=== PATIENT | female | born 1935 | race Caucasian/White ===

== ENCOUNTER 2016-11-30 14:10 | Inpatient (IN) | payer OTHER, MEDICAID ==
[~2016-11-30] VITALS: Ht 160 cm; Wt 81.6 kg
[~2016-11-30 14:10] MED LIST: ARICEPT10 MG PO; CELEXA40 MG PO; DITROPAN5 M1 PO; FERROUS SULFAT325 M3 PO; KLOR-CON 1010 MEQ PO; ORETIC25 MG PO; PROZAC40 MG PO; TRAMADOL50 MG PO; VITAMIN B12500 MC1 PO; XANAX1 M1 PO; ZOCOR40 MG PO
[2016-11-30 14:48] VITALS: BP 141/68
[2016-11-30] MEDS ORDERED: OMEPRAZOLE20 M3 PO (14:57)
[2016-11-30] MEDS ORDERED: NAMENDA10 MG PO (14:57)
[2016-11-30] MEDS ORDERED: SOMA350 MG PO (14:57)
[2016-11-30] MEDS ORDERED: SLOW-MAG 106 MG1 ECT PO (14:57)
[2016-11-30] MEDS ORDERED: ASPIRIN325 M2 PO (14:57)
--- NOTE | 2016-11-30 16:33 | NUR ---
Patient ambulated to bed 2. RN evaluating patient at bedside.
--- NOTE | 2016-11-30 16:36 | NUR ---
81/F BIB DAUGHTER C/O COUGH X 1 WK. AWAKE AND ALERT. PT STATES COUGH & LOWER BACK PAIN 1 WK. PT DENIES N/V/D; SKIN IS PINK/WARM/DRY; AAOX4 WITH EVEN AND STEADY GAIT; LUNGS MINIMAL CRACKLE BL; HR EVEN AND REGULAR; PTHAS SOB & COUGH AT THIS TIME; PATIENT STATES PAIN OF 5/10 AT THIS TIME; VSS; PATIENT POSITIONED FOR COMFORT; HOB ELEVATED; BEDRAILS UP X2; BED DOWN. ER MD MADE AWARE OF PT STATUS.
--- NOTE | 2016-11-30 16:57 | NUR ---
XRAY AT BEDSIDE.
[2016-11-30] MEDS ORDERED: ASPIRIN 81 MG TAB.CHEW PO ONE (17:35)
[2016-11-30] MEDS ORDERED: hePARIN / DEXT 5% PREMIX 250 ML IV ONE (18:50)
[2016-11-30] MEDS ORDERED: HEPARIN PER PHARMACY MC PRN ×2 (18:50→19:15)
--- NOTE | 2016-11-30 19:07 | NUR ---
Dr. Weems notified of Cardiology consultation.
[2016-11-30] MEDS ORDERED: METOPROLOL 25 MG TAB PO ONE ×2 (19:10→21:00)
[2016-11-30] MEDS ORDERED: NITROGLYCERIN 2% 1 GM PKT TP ONE (19:10)
[2016-11-30] MEDS ORDERED: CLOPIDOGREL 75 MG TAB PO ONE (19:10)
[2016-11-30] MEDS ORDERED: hePARIN / DEXT 5% PREMIX 250 ML IV PRN (19:15)
--- NOTE | 2016-11-30 19:36 | NUR ---
Pt report given to LORI HIDALGO. Transfer of care at this time.
--- NOTE | 2016-11-30 19:36 | NUR ---
GAVE REPORT TO GWEN DE JESUS
[2016-11-30 20:00] VITALS: BP 157/72
--- NOTE | 2016-11-30 20:00 | NUR ---
PATIENT CAME IN FROM ER PER LOUISA, WITH FAMILY. FULL CODE, HOOKED TO MECHANICAL RELIABILITY ENGINEER. SINUS RHYTHM. AWAKE, ALERT, ORIENTED. SPEAKS VERY MINIMAL GUAMANIAN. SWAZI PRIMARY LANGUAGE. ON ROOM AIR. WITH PERIPHERAL IV G20 SALINE LOCK ON RIGHT HAND INTACT. SKIN INTACT. BELONGINGS (PANTS AND SHOES) REMOVED AND GIVEN TO DAUGHTER (BARRERA RUFFIN).
--- NOTE | 2016-11-30 20:02 | NUR ---
Patient will be admitted to care of [facility]. Admited to ICU. Will go to room 2. Belongings list completed. Report to GWEN DE JESUS. TRANSFER OF CARE AT THIS TIME
[2016-11-30] MEDS ORDERED: NACL 0.9% 500 ML IV SCH (20:50)
[2016-11-30] MEDS ORDERED: methylPREDNISolone SS 125 MG/2 ML VIAL IVP ONE (20:50)
[2016-11-30] MEDS ORDERED: FUROSEMIDE 20 MG/2 ML VIAL IVP SCH (20:50)
[2016-11-30] MEDS: METOPROLOL 25 MG TAB PO SCH (21:00)
--- NOTE | 2016-11-30 21:00 | NUR ---
FEW MINUTES AFTER FAMILY LEFT THE PATIENT AT THE BEDSIDE, PATIENT STARTED GETTING AGITATED AND RESTLESS. TJ=710/106. FOOD AND WATER OFFERED BUT SHE REFUSED. SHE REFUSED TO TAKE ANY MEDS. SHE REMOVED PERIPHERAL IV, UNHOOKED HERSELF FROM STOCK SPECULATOR AND REMOVED PATCH FROM THE CHEST AND ID BAND. GOT OUT OF BED BY HERSELF. STANDING AND WANTED TO GO HOME. CALLED DAUGHTER BARRERA OVER THE PHONE AND SPOKE WITH THE PATIENT. ACCORDING TO THE DAUGHTER BARRERA, HER BROTHER WILL COME. WILL WAIT FOR BROTHER TO COME, CLOSE MONITOR. STAYED WITH THE PATIENT. SAFETY AND FALL PRECAUTIONS.
[2016-11-30] MEDS ORDERED: MAG SULF 2000 MG/WATER PREMIX 50 ML IV PRN (21:05)
[2016-11-30] MEDS ORDERED: POTASSIUM CHLORIDE 10 MEQ TABER PO PRN (21:05)
[2016-11-30] MEDS ORDERED: ALBUTEROL SULFATE/IPRATROPIU 3 ML SOL IH PRN (21:05)
[2016-11-30 22:00] VITALS: BP 183/106
--- NOTE | 2016-11-30 22:00 | NUR ---
SON ABIMAEL SHEARER CAME IN AND DISCUSSED THE SCENARIO HAPPENED EARLIER. TALKED TO THE PATIENT IN EMIRATI. PATIENT IN HIGH VOICE TALKING TO THE SON. CALLED DR. BUCKLEY AND RECEIVED ORDERS. FAMILY WAS ABLE TO CONVINCE PATIENT TO STAY IN ICU AND INSERT A NEW PERIPHERAL IV AND TO TAKE MEDS. ANOTHER SON AND CAME IN TO TALK TO THE PATIENT. ANOTHER NEW LINE ON RT HAND G 20 INSERTED AND WITH GOOD BLOOD BACK FLOW RETURN. KEPT INTACT. PATIENT CALMED DOWN WITH THE FAMILY ON THE BEDSIDE. LAUGHING AND TALKING NORMALLY TO THE FAMILY AND COOPERATIVE AT THIS TIME.
--- NOTE | 2016-11-30 22:02 | NUR ---
2130 HOURS WENT TO ASSES PATIENT IN ICU AND PATIENT REFUSED BREATHING TREATMENT AND ANY RESPIRATORY SERVICES. PATIENT IS ANGRY AND UPSET AND DOES NOT WANT TO STAY INSIDE THE HOSPITAL. PATIENT REFUSED ANY OXYGEN AND DID WANTED TO LEAVE HOSPITAL. RN AND TUNNEL ELASTIC OPERATOR ZIGZAG AWARE REGARDING PATIENTS REFUSAL OF ANY MEDICAL SERVICES. PATIENT WILL NOT WEAR SPO2 SENSOR AND HEART RATE MONITOR. PT STABLE AND ALERT AT THIS TIME
[2016-11-30] MEDS ORDERED: LOVENOX 1MG/KG Q12H SUBQ SCH (22:35)
[2016-11-30] MEDS ORDERED: MORPHINE SULFATE 2 MG/ML SYR ONE (22:38)
[2016-11-30] MEDS: SIMVASTATIN 40 MG TAB PO SCH (22:46)
[2016-11-30] MEDS ORDERED: ALPRAZolam 0.5 MG TAB PO SCH (22:55)
[2016-11-30] MEDS ORDERED: ONDANSETRON 4 MG/2 ML VIAL IVP PRN (22:55)
[2016-11-30] MEDS ORDERED: HYDROcodone/APAP 5/325 MG 1 TAB TAB PO PRN (22:55)
[2016-11-30] MEDS: MORPHINE SULFATE 2 MG/ML SYR IVP PRN (23:11)
[2016-11-30] MEDS ORDERED: ENOXAPARIN 80 MG/0.8 ML SYR SUBQ SCH (23:12)
[2016-11-30] MEDS: DEXT 5% /NACL 0.9% 1,000 ML IV SCH (23:19)
[2016-11-30] MEDS: guaiFENesin 20 MG/ML UDC PO PRN (23:42)
[2016-12-01] VITALS (12 sets, daily range): BP systolic 97–165; BP diastolic 31–90
--- NOTE | 2016-12-01 06:30 | NUR ---
PATIENT STARTED AGITATED, WANTED TO GO HOME. ABIMAEL SHEARER CONTACTED AND VERBALIZED THAT JOSETTE SON IS COMING. DR. BUCKLEY INFORMED THAT PATIENT DISCONNECTED ALL MEDICAL EQUIPMENTS AND REMOVED PERIPHERAL IV. WILL WAIT FOR FAMILY TO COME.
--- NOTE | 2016-12-01 07:15 | NUR ---
PATIENT REPORT ENDORSED TO DAY SHIFT RN MARIEL. ENDORSED OF NO PERIPHERAL IV, JOSETTE SON JUST CAME IN AND WILL TALK TO THE PATIENT TO CONVINCE TO STAY IN THE HOSPITAL, BECAUSE PATIENT WAS INSISTING TO GO HOME.
[2016-12-01] MEDS ORDERED: ASPIRIN 81 MG TAB.CHEW PO ONE (08:00)
--- NOTE | 2016-12-01 08:00 | NUR ---
DR BUCKLEY AT BEDSIDE TALKING TO PT'S SON AND PATIENT. MD UPDATED ON PATIENT CONDITION. WILL CONTINUE TO MONITOR.
[2016-12-01] MEDS ORDERED: PANTOPRAZOLE 40 MG TABEC PO ONE (09:00)
[2016-12-01] MEDS ORDERED: ATORVASTATIN 20 MG TAB PO SCH (09:00)
[2016-12-01] MEDS ORDERED: ENOXAPARIN 80 MG/0.8 ML SYR SUBQ SCH ×2 (09:00→21:00)
[2016-12-01] MEDS ORDERED: NITROGLYCERIN 0.4 MG/HR PATCH TD SCH (09:00)
[2016-12-01] MEDS ORDERED: FUROSEMIDE 40 MG/4 ML VIAL IVP SCH (09:00)
--- NOTE | 2016-12-01 09:05 | NUR ---
DR COTTON AT BEDSIDE ASSESSING PATIENT. MD UPDATED ON PATIENT CONDITION. WILL FOLLOW UP WITH ORDERS.
[2016-12-01] MEDS: METOPROLOL 25 MG TAB PO SCH ×2 (09:10→20:51)
[2016-12-01] MEDS: ISOSORBIDE DINITRATE 10 MG TAB PO SCH ×2 (09:10→20:30)
[2016-12-01] MEDS: POTASSIUM CHLORIDE 10 MEQ TABER PO SCH (09:10)
[2016-12-01] MEDS: ECOTRIN 81 MG TABEC PO SCH (09:10)
[2016-12-01] MEDS: PANTOPRAZOLE 40 MG TABEC PO SCH (09:10)
[2016-12-01] MEDS: guaiFENesin 20 MG/ML UDC PO PRN (09:11)
[2016-12-01] MEDS: AZITHROMYCIN 500 MG in DEXTROSE 5% 250 ML IV SCH (09:37)
--- NOTE | 2016-12-01 09:43 | NUR ---
ASSISTED PT TO BSC. OUTPUT 250 CLEAR, YELLOW URINE.
--- NOTE | 2016-12-01 11:57 | NUR ---
RECEIVED REPORT FROM GWEN VIDALES. PT SEEN AT BEDSIDE WITH PT'S SON. NO S/S DISTRESS OR SOB AT THIS TIME. PT HAS HX OF DEMENTIA; DOES NOT REMEMBER WHEN SHE CAME INTO THE HOSPITAL, BUT KNOWS THAT SHE IS IN A HOSPITAL. PT REPEATS SAME QUESTIONS; IS PLEASANTLY CONFUSED AT THIS TIME. PT IS ON 2L O2 VIA NC. ON CABINET INSTALLER RUNNING SINUS RHYTHM AT THIS TIME. PT HAS NO IV ACCESS AT THIS TIME; PER PROPERTY VALUER RN, PT HAS BEEN AGITATED AND PULLING OUT LINES ALL NIGHT AND IS CALMER WHEN FAMILY IS AVAILABLE. PT SKIN IS WARM, DRY, INTACT. PT IS ABLE TO MOVE X4 EXTREMITIES AND IS AMBULATORY. 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 PT ONLY REPORTS PAIN WHEN SOMETHING HEAVY IS ON HER LEFT CHEST; OTHERWISE, NO C/O CHEST PAIN OR OTHER PAINS AT THIS TIME. SAFETY MEASURES CHECKED, CALL LIGHT LEFT AT BEDSIDE. WILL CONTINUE TO MONITOR. Addendum: 12/01/16 at 1205 by Azra Duncan RN REAL TIME IS AT 0735.
--- NOTE | 2016-12-01 12:00 | NUR ---
BARRERA, PATIENT'S DAUGHTER TALKING TO DR. BUCKLEY ABOUT PT'S PLAN OF CARE. PER BARRERA, DR BUCKLEY SAYS THAT PATIENT IS HIGH-RISK PATIENT FOR ANGIOGRAM D/T HER AGE AND HX OF DEMENTIA; MD WILL DO ANGIOGRAM IF FAMILY REQUESTS, BUT INFORMED THEM THAT PATIENT IS A VERY HIGH RISK AND WILL MEDICALLY MANAGE IF THEY DO NOT WISH TO DO THE ANGIOGRAM. DAUGHTER, BARRERA, AWARE AND WILL TALK TO PATIENT AND FAMILY ABOUT PLAN. THEY WILL INFORM THE RN ABOUT THEIR DECISION. AWARE.
--- NOTE | 2016-12-01 13:15 | NUR ---
PER GWEN HUSSEIN, LAB CALLED FOR CRITICAL TROPONIN [phone]. TRENDING DOWN. Addendum: 12/01/16 at 1316 by Azra Duncan RN REALTIME 1240
[2016-12-01] MEDS: MORPHINE SULFATE 2 MG/ML SYR IVP PRN ×2 (13:44→23:57)
--- NOTE | 2016-12-01 13:44 | NUR ---
PT BECOMING AGITATED PULLING AT LINES. MORPHINE ADMINISTERED.
--- NOTE | 2016-12-01 15:00 | NUR ---
ASSISTED PATIENT WITH DINNER TRAY.
--- NOTE | 2016-12-01 15:31 | NUR ---
PT AGITATED AT THIS TIME. SAYS SHE IS "WAITING FOR THEM TO INCLUSION PARAEDUCATOR THE BLOOD AND PAPERS." NOTIFIED PATIENT THAT THEY HAD ALREADY DRAWN HER BLOOD AT NOON AND SHE IS AT THE HOSPITAL BECAUSE SHE HAD A HEART ATTACK. SHE SAYS SHE WILL "WAIT FOR [HER] DAUGHTER TO PICK [HER] UP".
--- NOTE | 2016-12-01 16:06 | NUR ---
PT'S AND DAUGHTER VISITING AND TALKING TO PATIENT.
[2016-12-01] MEDS: DEXT 5% /NACL 0.9% 1,000 ML IV SCH (16:22)
--- NOTE | 2016-12-01 18:49 | NUR ---
PER GWEN HUSSEIN, DR BUCKLEY IS OK WITH TRANSFERRING PT TO FLOOR IF BED IS AVAILABLE.
--- NOTE | 2016-12-01 19:15 | NUR ---
REPORT GIVEN TO GWEN VIDALES.
--- NOTE | 2016-12-01 19:22 | NUR ---
PEPPER, NURSING SECOND BUTLER NOTIFIED OF TRANSFER ORDER.
--- NOTE | 2016-12-01 19:22 | NUR ---
NOTIFIED DR. STANFORD THAT DR. BUCKLEY IS OK WITH PT TRANSFER TO TELE. PER MD, PUT IN ORDER FOR TRANSFER TO TELE. WILL FOLLOW UP WITH ORDER
--- NOTE | 2016-12-01 19:22 | NUR ---
RECEIVED PATIENT REPORT FROM DAY SHIFT RN MARIEL. FULL CODE, ON JUNIOR PROGRAMMER ANALYST, SINUS RHYTHM. AWAKE, ALERT, ORIENTED, SPEAKS CYMRAES PRIMARY LANGUAGE. SATURATING WELL ON ROOM AIR. WITH PERIPHERAL IV ON RIGHT ARM G22 RUNNING IVF D5NS AT 75ML/HR VIA IV PUMP. SKIN IS INTACT. ABLE TO FEED HERSELF. VOIDING FREELY. FOR TRANSFER TO [facility] WITH ORDER. PEPPER TITLE I ASSISTANT AWARE.
[2016-12-01] MEDS: SIMVASTATIN 40 MG TAB PO SCH (20:28)
[2016-12-01] MEDS ORDERED: ALPRAZolam 0.5 MG TAB PO SCH (21:00)
--- NOTE | 2016-12-01 21:10 | NUR ---
PER METALSMITH FAMILY 86 YRS , CAN NOT STAY AT BEDSIDE WITH PT IN TELE, DISCUSSION WITH ADE SCHUMACHER TELE POLICY, EXPLAIN TO BARRERA DAUGHTER OFF PT PER POLICY FAMILY CAN NOT STAY WITH PT , PT ROOM CLOSE WITH NURSE STATION , BARRERA AGREE WILL TAKE HER FATHER HOME ASA MOVED PT OUT , FAMILY WANT TO SEE THE ROOM BEFORE THEY GO HOME, AND CALLED TALK WITH ABIMAEL SON ,HE LIVE CLOSE WITH HOSPITAL IF HAS ANY PROBLEM CALL HIM ANY TIME, HE WILL COME IN.
--- NOTE | 2016-12-01 21:10 | NUR ---
PATIENT LEFT ICU FOR TRANSFER TO TELEMETRY ROOM 110A ORDERED. ICU NUCLEAR FUELS RESEARCH ENGINEER MARITZA SPOKE WITH TELEMETRY NUCLEAR FUELS RESEARCH ENGINEER. REPORT GIVEN TO SOLEDAD HIDALGO. PATIENT STABLE, SATURATING WELL ON ROOM AIR. TRANSFERRED BED TO BED ON PORTABLE MONITOR WITH 2 ELECTRIC MOTOR REBUILDER ASSIST AND FAMILY ON THE WAY. PATIENT TOLERATED, NO SIGNS OF DISCOMFORT OR RESPIRATORY DISTRESS.
--- NOTE | 2016-12-01 21:20 | NUR ---
RECEIVED TRANSFER FROM ICU PER BED, PT AAOX3, ROMANSH SPEAKING, DENIES ANY PAIN, ASSISTED TO BR, VOIDED FREELY, SLIGHT SOB ON EXERTION, PUT ON O2 1L/NC, HX OF COPD, OCCASIONAL COUGH NOTED, HOB ELEVATED FOR COMFORT, VITAL SIGNS STABLE, SAFETY MEASURES IN PLACE, SIDE RAILS UP AND BED ALARM ON, FAMILY MEMBERS AT BEDSIDE, CALL LIGHT WITHIN REACH.
--- NOTE | 2016-12-01 22:54 | NUR ---
PT WITH EPISODE OF CONFUSION, TRYING TO GET OOB, REORIENT TO PLACE AND TIME, SIDE RAILS UP AND BED ALARM ON.
--- NOTE | 2016-12-01 23:44 | NUR ---
PT TRYING TO GET OOB AND WANTS TO CLOSE THE DOOR BECAUSE OF THE NOISE, MADE AWARE THAT WE CANNOT DO THAT DUE TO SAFETY REASONS, PT GETTING AGITATED AND ANGRY, EAR PLUGS PROVIDED BUT PT STILL HEARING NOISES, CHER COREY STAYED INSIDE THE ROOM WITH PT, VITAL SIGNS STABLE, CONTINUE TO MONITOR CLOSELY.
[2016-12-02] VITALS: BP 130/59
--- NOTE | 2016-12-02 01:28 | NUR ---
FREQUENT ROUNDING MADE, SEEN ASLEEP, NO SIGNS OF DISTRESS, SIDE RAILS UP AND BED ALARM ON.
[2016-12-02] MEDS: DEXT 5% /NACL 0.9% 1,000 ML IV SCH ×2 (01:35→06:42)
[2016-12-02] MEDS ORDERED: LORazepam 2 MG/ML VIAL IM/IVP PRN (02:35)
--- NOTE | 2016-12-02 02:35 | NUR ---
PT TRIGGERED BED ALARM, SEEN SITTING ON SIDE OF BED, CALM BUT CONFUSED, ENCOURAGE TO GO BACK TO BED BUT PT REFUSED, PT NOT SLEEPY AND REQUESTING FOR CRACKERS, STAYED INSIDE THE ROOM TO CLOSELY MONITOR THE PT, CONVERSANT BUT KEEPS ON REPEATING THE CONVERSATION, REFUSED TO GO BACK TO BED, PT WEAK AND UNSTEADY, DR JIMÉNEZ PAGED WITH NEW ORDER FOR SITTER AND ATIVAN IVP PRN, MONITORED CLOSELY.
--- NOTE | 2016-12-02 03:33 | NUR ---
PT STILL AWAKE, TRIED TO GET OOB, REORIENTED TO TIME AND PLACE BUT STILL CONFUSED, VITAL SIGNS STABLE, MEDICATED WITH ATIVAN 0.5MG IVP PRN ORDERED, MONITORED CLOSELY.
[2016-12-02 04:00] VITALS: BP 117/53
--- NOTE | 2016-12-02 05:48 | NUR ---
ASLEEP, EASILY AROUSABLE, NO SIGNS OF DISTRESS, AM LABS DRAWN, MONITORED CLOSELY.
--- NOTE | 2016-12-02 06:53 | NUR ---
PT TRIGGERED BED ALARM, SEEN STANDING ON SIDE OF BED, SHES LOOKING FOR HER , ORIENTED TO TIME AND PLACE, CALLED DAUGHTER BARRERA AND SHE TALKED TO THE PT, PT CALM AT THIS TIME, SIDE RAILS UP AND BED ALARM ON, CALL LIGHT WITHIN REACH.
--- NOTE | 2016-12-02 07:25 | NUR ---
PT AWAKE, NO SIGNS OF DISTRESS, REPORT GIVEN TO CHHAYA HIDALGO FOR CONTINUITY OF CARE.
--- NOTE | 2016-12-02 07:25 | NUR ---
RECEIVED REPORT FROM NIGHT NURSE, PT IS AAOX3 WITH EPISODES OF CONFUSION, PT IS ON O2 1L VIA NC, IV TO RIGHT ARM 22G INFUSING WELL, SKIN INTACT, NO SOB OR COUGH NOTED, NO S/S OF DISTRESS OR DISCOMFORT NOTED. INITIAL ASSESSMENT COMPLETED, REVIEWED PLAN OF CARE WITH PT, PT VERBALIZED UNDERSTANDING, ORIENTED PT TO ROOM AND ENVIRONMENT. CALL LIGHT WITHIN REACH. WILL CONTINUE TO MONITOR.
[2016-12-02 08:00] VITALS: BP 126/71
[2016-12-02] MEDS ORDERED: FUROSEMIDE 40 MG/4 ML VIAL IVP SCH (09:00)
[2016-12-02] MEDS: METOPROLOL 25 MG TAB PO SCH (09:00)
--- NOTE | 2016-12-02 09:05 | NUR ---
PATIENT HAS BEEN SCREENED AND CATEGORIZED HIGH NUTRITION RISK. PATIENT WILL BE SEEN WITHIN 1-2 DAYS OF ADMISSION. 12/01/16-12/02/[address]
[2016-12-02] MEDS: PANTOPRAZOLE 40 MG TABEC PO SCH (09:30)
[2016-12-02] MEDS: ECOTRIN 81 MG TABEC PO SCH (09:30)
[2016-12-02] MEDS: POTASSIUM CHLORIDE 10 MEQ TABER PO SCH (09:30)
[2016-12-02] MEDS: ISOSORBIDE DINITRATE 10 MG TAB PO SCH (09:32)
[2016-12-02] MEDS: AZITHROMYCIN 500 MG in DEXTROSE 5% 250 ML IV SCH (09:32)
--- NOTE | 2016-12-02 09:38 | NUR ---
DUE MEDICATIONS GIVEN PT TOLERATED WELL, METOPROLOL NOT GIVEN HEART RATE LESS THAN 60. CALL LIGHT WITHIN REACH. WILL CONTINUE TO MONITOR.
[2016-12-02 12:00] VITALS: BP 116/64
[2016-12-02] MEDS: guaiFENesin 20 MG/ML UDC PO PRN (13:13)
--- NOTE | 2016-12-02 13:15 | NUR ---
COUGH NOTED, MEDICATED PER MD ORDERS. FAMILY AT BEDSIDE. CALL LIGHT WITHIN REACH. WILL CONTINUE TO MONITOR.
--- NOTE | 2016-12-02 13:38 | NUR ---
PT WAS SALINE LOCK. PER MD ORDERS.
--- NOTE | 2016-12-02 13:55 | NUR ---
CHECKED IN ON PT, FAMILY AT BEDSIDE. ALL NEEDS MET, CALL LIGHT WITHIN REACH. WILL CONTINUE TO MONITOR
--- NOTE | 2016-12-02 14:06 | NUR ---
12/02/16 RD INITIAL ASSESSMENT COMPLETED PLEASE REFER TO NUTRITION ASSESSMENT UNDER CARE ACTIVITY FOR ESTIMATED NUTRITIONAL NEEDS. RD RECOMMENDATIONS: 1. CONTINUE CARDIAC DIET TOLERATED PER MD 2. ENCOURAGE INCREASED PO INTAKES 3. RD TO ADD DIET HEALTH SHAKES TID TO HELP INCREASE KCAL AND PROTEIN CONSUMPTION D/T PT WITH POOR PO INTAKES 4. IF/WHEN PO INTAKES IMPROVE >75% CONSIDER ADDING CCHO 60G TO CURRENT DIET ORDER 5. RD WILL F/U 3-5 DAYS; MODERATE RISK. LEONEL OH RD
--- NOTE | 2016-12-02 14:47 | NUR ---
CM NOTE INITIAL REVIEW [facility] / FAX# [phone], ATTN: HEATH #[phone]
--- NOTE | 2016-12-02 15:01 | NUR ---
SS NOTE: I SPOKE WITH PT'S DTRBARRERA ALONG WITH FAMILY BEDSIDE TO PT AND PROVIDED HER WITH INFORMATION FOR IN HOME SUPPORTIVE SERVICES SO THAT PT CAN APPLY TO RECEIVE HOME CARE.
--- NOTE | 2016-12-02 15:10 | NUR ---
FAMILY AT BEDSIDE, WILL CONTINUE TO MONITOR.
[2016-12-02 16:00] VITALS: BP 115/49
--- NOTE | 2016-12-02 16:05 | NUR ---
PT CURRENTLY VISITING WITH FAMILY NO S/S OF RESPIRATORY DISTRESS NOTED, CALL LIGHT WITHIN REACH, WILL CONTINUE TO MONITOR.
[2016-12-02] MEDS ORDERED: ISORDIL10 M1 PO ×2 (17:46→17:47)
[2016-12-02] MEDS ORDERED: SIMVASTATIN20 MG PO (17:49)
[2016-12-02] MEDS ORDERED: METOPROLOL SUCC25 MG PO (17:50)
[2016-12-02] MEDS ORDERED: LEVAQUIN500 M1 PO (17:50)
[2016-12-02] MEDS ORDERED: COUGH100 MG/51 PO (17:52)
[2016-12-02] MEDS ORDERED: PROAIR HFA8.5 GM IH (17:55)
--- NOTE | 2016-12-02 18:00 | NUR ---
DISCUSSED DISCHARGE PLAN WITH FAMILY AND PT, BOTH VERBALIZED UNDERSTANDING.
--- NOTE | 2016-12-02 18:25 | NUR ---
PT SIGNED ALL DISCHARGE PAPERWORK, NEW PRESCRIPTION GIVEN ALONG WITH DISCHARGE EDUCATION TO PT AND FAMILY. BOTH VERBALIZED UNDERSTANDING. IV REMOVED TIP INTACT.
--- NOTE | 2016-12-02 18:30 | NUR ---
PT WAS WHEELED OUT TO FRONT LOBBY IN STABLE CONDITION.
== END 2016-12-02 18:30 | disposition home or self-care (01) | DRG 682 ==
LOC: MED 14:10 → MIC 19:27 → MTU 12-01 21:16
PROVIDERS: ADMIT Internal Medicine Pulmonary Disease; ATTEND Internal Medicine Pulmonary Disease
DX: N17.9 Acute kidney failure, unspecified (principal); I21.4 Non-ST elevation (NSTEMI) myocardial infarction; J44.0 Chronic obstructive pulmonary disease with (acute) lower respiratory infection; I50.42 Chronic combined systolic (congestive) and diastolic (congestive) heart failure; J44.1 Chronic obstructive pulmonary disease with (acute) exacerbation; J20.9 Acute bronchitis, unspecified; E86.0 Dehydration; E11.9 Type 2 diabetes mellitus without complications; F03.90 Unspecified dementia, unspecified severity, without behavioral disturbance, psychotic disturbance, mood disturbance, and anxiety; M19.90 Unspecified osteoarthritis, unspecified site; J45.909 Unspecified asthma, uncomplicated; I11.0 Hypertensive heart disease with heart failure; Z85.3 Personal history of malignant neoplasm of breast; Z92.3 Personal history of irradiation